=== PATIENT | female | born 2000 | race African-American/Black ===

== ENCOUNTER 2019-07-24 19:50 | Emergency (ER) | payer MEDICAID ==
[~2019-07-24] VITALS: Ht 162.6 cm; Wt 55.8 kg
[2019-07-24 20:04] VITALS: BP 108/74
--- NOTE | 2019-07-24 20:07 | NUR ---
ED Nurse Note: Patient walked in to ER c/o lower abdominal pain 5/. AAO x4, VSS at this time, skin is dry warm to touch. Patient stated that last period was in May.
[2019-07-24] MEDS ORDERED: Isovue-300 100ml vial INJ PRN (20:15)
--- NOTE | 2019-07-24 20:24 | Emergency Room Report ---
History of Present Illness General Chief Complaint: Abdominal Pain Source: Patient Present Illness HPI 18-year-old female with no significant past medical history here complaining of 2 weeks of right left lower quadrant abdominal pain radiating to suprapubic level. Also complains of urinary frequency however denies painful she says that she denies fever any chills, nausea vomiting, diarrhea. Patient reports that the pain is worse when she is laying down as well as walking. Denies pain after eating. Patient reports that her last menstrual period was in mid May and denies being however has been sexually active. Reports leg bloating. Denies recent travel. Denies dizziness and headache. Denies hematuria, sore throat number is 3-3 blood in her stool. 3 2 has not taken medication for symptom relief. Rating the pain 10 out of 10 without radiation at this time. Allergies: Coded Allergies: PENICILLINS (Verified Allergy, Unknown, 07/24/19) face swelling Patient History Past Medical History: see triage record Past Surgical History: unable to obtain Pertinent Family History: none Last Menstrual Period: May 24, 2019 Now: No : 0 Para: 0 Immunizations: UTD Reviewed Nursing Documentation: PMH: Agreed; PSxH: Agreed Nursing Documentation-PMH Past Medical History: No Stated History Review of Systems All Other Systems: negative except mentioned in HPI Physical Exam Vital Signs Date Time Temp Pulse Resp B/P (MAP) Pulse Ox O2 Delivery O2 Flow Rate FiO2 07/24/19 19:53 98.8 81 16 108/74 (85) 100 Room Air Sp02 EP Interpretation: reviewed, normal General Appearance: no apparent distress, alert, GCS 15, non-toxic Head: normocephalic, atraumatic Eyes: bilateral eye normal inspection, bilateral eye PERRL ENT: hearing grossly normal, normal pharynx, no angioedema, normal voice Neck: full range of motion, supple/symm/no masses Respiratory: chest non-tender, lungs clear, normal breath sounds, no rhonchi, speaking full sentences Cardiovascular #1: regular rate, rhythm, no edema, no murmur Gastrointestinal: normal bowel sounds, non tender, no peritonitis, no bruit, no guarding, no hernia, no pulsatile mass, no rebound, abnormal bowel sounds, distended, other - Negative McBurney's and Rovsing's Rectal: deferred Genitourinary: no CVA tenderness Musculoskeletal: normal inspection, back normal, digits/nails normal Neurologic: normal inspection, alert, oriented x3 Psychiatric: judgement/insight normal, memory normal, mood/affect normal, no suicidal/homicidal ideation Skin: no rash Lymphatic: no adenopathy Medical Decision Making PA Attestation All diagnoses and treatment plans were reviewed and discussed with my supervising physician Dr. Lundberg Diagnostic Impression: Primary Impression: Abdominal muscle strain ER Course 18-year-old female with no significant past medical history here complaining of 2 weeks of right left lower quadrant abdominal pain radiating to suprapubic level. Also complains of urinary frequency however denies painful she says that she denies fever any chills, nausea vomiting, diarrhea. Patient reports that the pain is worse when she is laying down as well as walking. Denies pain after eating. Patient reports that her last menstrual period was in mid May and denies being however has been sexually active. Reports leg bloating. Denies recent travel. Denies dizziness and headache. Denies hematuria, sore throat number is 3-3 blood in her stool. 3 2 has not taken medication for symptom relief. Rating the pain 10 out of 10 without radiation at this time. Ddx considered but are not limited to: appendicitis, cholecystis, gastritis, gastroenteritis, UTI, pyelonephritis, SBO, diverticulitis, abdominal muscle strain Vital signs: are WNL, pt. is afebrile H&PE are most consistent with: abdominal muscle strain ORDERS: abdominal CT, abdominal pain set,ibuprofen ED INTERVENTIONS: None required at this time. DISCHARGE: At this time pt. is stable for d/c to home. Will provide printed patient care instructions, and any necessary prescriptions. Care plan and follow up instructions have been discussed with the patient prior to discharge. Take medication as directed follow-up with primary care provider avoid strenuous activity worsening symptoms return to emergency room. P no sign of urinary tract infection or pyelonephritis noted. CT/MRI/US Diagnostic Results CT/MRI/US Diagnostic Results : Imaging Test Ordered: CT abd and pelvis w contrast Impression FINDINGS: Artifacts: Motion degrades study. Lung bases: Unremarkable. No mass. No consolidation. ABDOMEN: Liver: Unremarkable. No mass. Gallbladder and bile ducts: Unremarkable. No calcified stones. No ductal dilation. Pancreas: Unremarkable. No mass. No ductal dilation. Spleen: Unremarkable. No splenomegaly. Adrenals: Unremarkable. No mass. Kidneys and ureters: Unremarkable. No solid mass. No hydronephrosis. Stomach and bowel: Unremarkable. No obstruction. No mucosal thickening. PELVIS: Appendix: No findings to suggest acute appendicitis. Bladder: Unremarkable. No mass. Reproductive: Prominent right ovarian functional cyst. ABDOMEN and PELVIS: Intraperitoneal space: Unremarkable. No free air. No significant fluid collection. Bones/joints: No acute fracture. No dislocation. Soft tissues: Unremarkable. Vasculature: Unremarkable. No abdominal aortic aneurysm. Lymph nodes: Unremarkable. No enlarged lymph nodes. IMPRESSION: No acute findings. Last Vital Signs Date Time Temp Pulse Resp B/P (MAP) Pulse Ox O2 Delivery O2 Flow Rate FiO2 07/24/19 20:04 81 16 Room Air 07/24/19 20:04 98.8 108/74 100 Disposition: HOME, SELF-CARE Condition: Stable Patient Instructions: Abdominal Pain, Adult Additional Instructions: Take medication as directed follow-up with primary care provider avoid strenuous activity worsening symptoms return to emergency room. P no sign of urinary tract infection or pyelonephritis noted. Jaylyn Gallardo Jul 24, 2019 20:24
[2019-07-24 20:37] LABS: EOSINOPHILS % (AUTO) 1.1 % (0.0-3.0); HEMATOCRIT 43.9 % (37.0-47.0); HEMOGLOBIN 15.3 G/DL (12.0-16.0); LYMPHOCYTES % (AUTO) 38.7 % (20.0-45.0); MEAN CORPUSCULAR VOLUME 87 FL (80-99); MONOCYTES % (AUTO) 6.7 % (1.0-10.0); NEUTROPHILS % (AUTO) 52.5 % (45.0-75.0); PLATELET COUNT 246 K/UL (150-450); RED BLOOD COUNT 5.05 M/UL (4.20-5.40); RED CELL DISTRIBUTION WIDTH 11.4 % (11.6-14.8)
[2019-07-24 20:38] LABS: APPEARANCE,URINE CLEAR; BILIRUBIN, URINE NEGATIVE (NEGATIVE); GLUCOSE, URINE (UA) NEGATIVE (NEGATIVE); KETONES,URINE NEGATIVE (NEGATIVE); LEUKOCYTE ESTERASE ,URINE 1+ (NEGATIVE); NITRITE,URINE NEGATIVE (NEGATIVE); PH,URINE 8 (4.5-8.0); PROTEIN,URINE NEGATIVE (NEGATIVE); UROBILINOGEN,URINE 4 MG/DL (0.0-1.0)
[2019-07-24 20:39] LABS: ANION GAP 7 mmol/L (5-15); BLOOD UREA NITROGEN 17 mg/dL (7-18); CALCIUM 9.3 MG/DL (8.5-10.1); CARBON DIOXIDE 28 MMOL/L (21-32); CHLORIDE 106 MMOL/L (98-107); CREATININE 0.7 MG/DL (0.55-1.30); POTASSIUM 5.5 MMOL/L (3.5-5.1); SODIUM 141 MMOL/L (136-145)
[2019-07-24 20:42] LABS: COLOR,URINE YELLOW
[2019-07-24 20:44] LABS: ALANINE AMINOTRANSFERASE 50 U/L (12-78); ALBUMIN 4.3 G/DL (3.4-5.0); ALBUMIN/GLOBULIN RATIO 1.1 (1.0-2.7); ALKALINE PHOSPHATASE 85 U/L (46-116); ASPARTATE AMINO TRANSFERASE 37 U/L (15-37); BILIRUBIN,TOTAL 0.4 MG/DL (0.2-1.0)
[2019-07-24] MEDS ORDERED: IBUPROFEN600 MG ORAL (21:17)
--- NOTE | 2019-07-24 21:27 | NUR ---
ER DISCHARGE NOTE: Patient is cleared to be discharged per ERMD, pt is aox4, on room air, with stable vital signs. pt was given dc and prescription instructions, pt was able to verbalize understanding, pt id band and iv site removed without complications. pt is able to ambulate with steady gait. pt took all belongings.
== END 2019-07-24 21:26 | disposition home or self-care (01) ==
LOC: EMR 20:20
DX: S39.011A Strain of muscle, fascia and tendon of abdomen, initial encounter (principal); X58.XXXA Exposure to other specified factors, initial encounter; Y93.9 Activity, unspecified; Y92.9 Unspecified place or not applicable; Z88.0 Allergy status to penicillin
CPT/HCPCS: 36415; 74177; 80053; 81001; 81025; 85025; Q9967; Z7502; 99284

== ENCOUNTER 2019-10-03 22:20 | Emergency (ER) | payer MEDICAID ==
[~2019-10-03] VITALS: Ht 160 cm; Wt 56.2 kg
[~2019-10-03 22:20] MED LIST: IBUPROFEN600 MG ORAL
[2019-10-03 22:28] VITALS: BP 110/74
[2019-10-03] MEDS ORDERED: HYDROcodone/Acetamin 5/325 tab ORAL ONE (22:45)
[2019-10-03] MEDS ORDERED: IBUPROFEN600 MG ORAL (22:50)
[2019-10-03] MEDS ORDERED: HYDROCODON-ACE1 EA15 ORAL (22:50)
--- NOTE | 2019-10-03 22:50 | Emergency Room Report ---
History of Present Illness General Chief Complaint: Pain Source: Patient Present Illness HPI This is a 18-year-old female with no past medical history. She presents with chief complaint of left foot pain. No trauma. Onset yesterday. She points near the arch of her foot as area pain. No fever chills. Worse with palpation and walking. She is limping. Pain is 8 out of 10. Denies any fever chills but denies any redness but no drainage. Better with rest. Allergies: Coded Allergies: PENICILLINS (Verified Allergy, Unknown, 07/24/19) face swelling Patient History Past Medical History: see triage record, old chart reviewed Past Surgical History: none Pertinent Family History: none Social History: Denies: smoking Now: No Immunizations: other Reviewed Nursing Documentation: PMH: Agreed; PSxH: Agreed Nursing Documentation-PMH Past Medical History: No Stated History Review of Systems Eye: Denies: eye pain, blurred vision ENT: Denies: ear pain, nose congestion, throat swelling Respiratory: Denies: cough, shortness of breath Cardiovascular: Denies: chest pain, palpitations Gastrointestinal: Denies: abdominal pain, diarrhea, nausea, vomiting Musculoskeletal: Reports: joint pain; Denies: back pain Skin: Denies: rash Neurological: Denies: headache, numbness Endocrine: Denies: increased thirst, increased urine Hematologic/Lymphatic: Denies: easy bruising All Other Systems: negative except mentioned in HPI Physical Exam Vital Signs Date Time Temp Pulse Resp B/P (MAP) Pulse Ox O2 Delivery O2 Flow Rate FiO2 10/03/19 22:23 98.8 90 18 115/77 (90) 100 Room Air Vitals normal Sp02 EP Interpretation: reviewed, normal General Appearance: well appearing, no apparent distress, alert Head: normocephalic, atraumatic Eyes: bilateral eye PERRL, bilateral eye EOMI ENT: hearing grossly normal, normal pharynx Neck: full range of motion, supple, no meningismus Respiratory: chest non-tender, lungs clear, normal breath sounds Cardiovascular #1: regular rate, rhythm, no murmur Gastrointestinal: normal bowel sounds, non tender, no mass, no organomegaly, no bruit, non-distended Musculoskeletal: back normal, normal range of motion, gait/station normal, swelling - Left foot: She has tenderness just distal to the medial malleolus above the arch. There is some swelling. No redness or warmth. No tenderness over the plantar fascia. Pulses normal. Psychiatric: mood/affect normal Procedures Splinting Splinting : Consent: Verbal Location: left ankle Pre-Made Type: VANESSA wrap Pre-Proc Neuro Vasc Exam: normal Post-Proc Neuro Vasc Exam: normal Patient Tolerated: Well Complications: None Medical Decision Making Diagnostic Impression: Primary Impression: Left ankle sprain Qualified Codes: S93.422A - Sprain of deltoid ligament of left ankle, initial encounter ER Course Patient with left ankle pain. Most likely a sprain. I see no warmth or redness to indicate this is an infection. May be early in the process. It was worse in and more redness and warmth to that area, she will need antibiotics. We will treat for inflammation. No evidence of plantar fasciitis. No trauma. Other X-Ray Diagnostic Results Other X-Ray Diagnostic Results : X-Ray ordered: Left ankle x-rays # of Views/Limited Vs Complete: 3 View Indication: Pain EP Interpretation: Yes Interpretation: no dislocation, no soft tissue swelling, no fractures Impression: No acute disease Electronically Signed by: Ramesh Son MD Last Vital Signs Date Time Temp Pulse Resp B/P (MAP) Pulse Ox O2 Delivery O2 Flow Rate FiO2 10/03/19 22:28 98.3 84 17 110/74 99 Room Air Status: improved Disposition: HOME, SELF-CARE Condition: Stable Scripts Ibuprofen* (MOTRIN*) 600 Mg Tablet 600 MG ORAL THREE TIMES A DAY, #30 TAB 0 Refills Prov: Ramesh Son MD 10/03/19 Hydrocodone/Acetaminophen 5-325* (HYDROCODONE/ACETAMINOPHEN 5-325*) 1 Each Tablet 1 TAB ORAL Q6H PRN for For Pain, #10 TAB 0 Refills Prov: Ramesh Son MD 10/03/19 Additional Instructions: Elevate leg. Use crutches as needed. Follow-up with your doctor in 7 days. If having redness or fever to the foot, will need antibiotics. Return if symptoms worsen. Ramesh Son MD Oct 03, 2019 22:50
[2019-10-03 22:54] VITALS: BP 102/77
--- NOTE | 2019-10-03 23:38 | Diagnostic Imaging Report ---
EXAM: XR Left Ankle Complete, 3 or More Views CLINICAL HISTORY: TRAUMA TECHNIQUE: Frontal, lateral and oblique views of the left ankle. COMPARISON: No relevant prior studies available. FINDINGS: Bones/joints: Unremarkable. No acute fracture. No dislocation. Soft tissues: Moderate soft tissue swelling along and inferior to the medial malleolus. IMPRESSION: No acute or healing fracture or malalignment.
== END 2019-10-03 22:54 | disposition home or self-care (01) ==
LOC: EMR 22:42
DX: S93.422A Sprain of deltoid ligament of left ankle, initial encounter (principal); X58.XXXA Exposure to other specified factors, initial encounter; Y92.9 Unspecified place or not applicable; Z88.0 Allergy status to penicillin
CPT/HCPCS: 73610; Z7502; 99283

== ENCOUNTER 2019-10-27 00:15 | Emergency (ER) | payer MEDICAID ==
[~2019-10-27] VITALS: Ht 162.6 cm; Wt 65.8 kg
[~2019-10-27 00:15] MED LIST changes: +HYDROCODON-ACE1 EA15 ORAL
[2019-10-27] MEDS ORDERED: Ketorolac 30mg Inj IV ONE (00:45)
--- NOTE | 2019-10-27 00:47 | Emergency Room Report ---
History of Present Illness General Chief Complaint: Abdominal Pain Source: Patient Present Illness HPI This is a 18-year-old female with no past medical history patient presents with chief plan abdominal pain. Pain is on and off is been ongoing for the last 2 weeks. When it comes on is sharp and spastic in nature. Lasted for a few minutes. No nausea no vomiting. No fever chills. No diarrhea. Admitted better. Admitted worse. There is no aggravating factor. There is no relieving factors. Denies any urinary complaint. She said her menstruation is irregular. Said that she is not . Her pain is 8 out of 10. No radiation. Allergies: Coded Allergies: PENICILLINS (Verified Allergy, Unknown, 07/24/19) face swelling Patient History Past Medical History: see triage record, old chart reviewed Past Surgical History: none Pertinent Family History: none Social History: Denies: smoking Last Menstrual Period: aug 04 Now: No Immunizations: other Reviewed Nursing Documentation: PMH: Agreed; PSxH: Agreed Nursing Documentation-PMH Past Medical History: No Stated History Review of Systems Eye: Denies: eye pain, blurred vision ENT: Denies: ear pain, nose congestion, throat swelling Respiratory: Denies: cough, shortness of breath Cardiovascular: Denies: chest pain, palpitations Gastrointestinal: Reports: abdominal pain; Denies: diarrhea, nausea, vomiting Musculoskeletal: Denies: back pain, joint pain Skin: Denies: rash Neurological: Denies: headache, numbness Endocrine: Denies: increased thirst, increased urine Hematologic/Lymphatic: Denies: easy bruising All Other Systems: negative except mentioned in HPI Physical Exam Vital Signs Date Time Temp Pulse Resp B/P (MAP) Pulse Ox O2 Delivery O2 Flow Rate FiO2 10/27/19 00:20 98.1 86 16 108/71 (83) 99 Room Air Vitals normal Sp02 EP Interpretation: reviewed, normal General Appearance: well appearing, no apparent distress, alert Head: normocephalic, atraumatic Eyes: bilateral eye PERRL, bilateral eye EOMI ENT: hearing grossly normal, normal pharynx Neck: full range of motion, supple, no meningismus Respiratory: chest non-tender, lungs clear, normal breath sounds Cardiovascular #1: regular rate, rhythm, no murmur Gastrointestinal: non tender, no mass, no organomegaly, no bruit, non-distended , abnormal bowel sounds - Hyperactive Musculoskeletal: back normal, normal range of motion, gait/station normal Psychiatric: mood/affect normal Medical Decision Making Diagnostic Impression: Primary Impression: Abdominal pain during in first trimester Additional Impression: UTI (urinary tract infection) Qualified Codes: N30.00 - Acute cystitis without hematuria ER Course Patient with abdominal pain and early . Her level is very low. Nothing can be seen on the ultrasound. No obvious ectopic. Patient felt better now. Will discharge home with close follow-up. Explained to the patient that this may be early versus ectopic. Way too early to tell. She was here on October 10 and was negative. She looks comfortable. No guarding or rebound. CT/MRI/US Diagnostic Results CT/MRI/US Diagnostic Results : Imaging Test Ordered: Pelvic ultrasound Impression Read by industrial controls technician. Thickened endometrium but no IUP seen. No mass in the ovaries. Last Vital Signs Date Time Temp Pulse Resp B/P (MAP) Pulse Ox O2 Delivery O2 Flow Rate FiO2 10/27/19 00:20 98.1 86 16 108/71 (83) 99 Room Air Status: improved Disposition: HOME, SELF-CARE Condition: Stable Scripts Nitrofurantoin Monohyd/M-Cryst (Nitrofurantoin [place]-Mcr 100 mg) 100 Mg Capsule 100 MG ORAL Q12H, #14 CAP Prov: Ramesh Son MD 10/27/19 Referrals: [facility],REFERR[facility] (PCP) Patient Instructions: Abdominal Pain During Additional Instructions: May take Tylenol for pain. Follow-up with your [facility] within a week. Return if symptoms worsen. Ramesh Son MD Oct 27, 2019 00:47
[2019-10-27 01:03] LABS: EOSINOPHILS % (AUTO) 1.5 % (0.0-3.0); HEMATOCRIT 40.4 % (37.0-47.0); HEMOGLOBIN 14.2 G/DL (12.0-16.0); MEAN CORPUSCULAR VOLUME 85 FL (80-99); MONOCYTES % (AUTO) 7.3 % (1.0-10.0); NEUTROPHILS % (AUTO) 49.2 % (45.0-75.0); PLATELET COUNT 258 K/UL (150-450); RED BLOOD COUNT 4.78 M/UL (4.20-5.40); RED CELL DISTRIBUTION WIDTH 10.6 % (11.6-14.8); WHITE BLOOD COUNT 9.7 K/UL (4.8-10.8)
[2019-10-27 01:13] LABS: ANION GAP 7 mmol/L (5-15); BLOOD UREA NITROGEN 15 mg/dL (7-18); CALCIUM 8.6 MG/DL (8.5-10.1); CARBON DIOXIDE 26 MMOL/L (21-32); CHLORIDE 106 MMOL/L (98-107); CREATININE 0.7 MG/DL (0.55-1.30); POTASSIUM 3.6 MMOL/L (3.5-5.1); SODIUM 139 MMOL/L (136-145)
[2019-10-27 01:17] LABS: ALANINE AMINOTRANSFERASE 17 U/L (12-78); ALBUMIN 3.9 G/DL (3.4-5.0); ALBUMIN/GLOBULIN RATIO 1.1 (1.0-2.7); ALKALINE PHOSPHATASE 76 U/L (46-116); ASPARTATE AMINO TRANSFERASE 13 U/L (15-37); BILIRUBIN,TOTAL 0.3 MG/DL (0.2-1.0)
[2019-10-27] MEDS ORDERED: Morphine Sulfate 4mg/ml Inj (IV USE ONLY) IVP ONE (01:30)
[2019-10-27 01:38] LABS: BILIRUBIN, URINE NEGATIVE (NEGATIVE); COLOR,URINE PALE YELLOW; GLUCOSE, URINE (UA) NEGATIVE (NEGATIVE); KETONES,URINE 1+ (NEGATIVE); LEUKOCYTE ESTERASE ,URINE 1+ (NEGATIVE); NITRITE,URINE NEGATIVE (NEGATIVE); PH,URINE 6 (4.5-8.0); PROTEIN,URINE NEGATIVE (NEGATIVE); UROBILINOGEN,URINE NORMAL MG/DL (0.0-1.0)
[2019-10-27 01:47] LABS: APPEARANCE,URINE SLIGHTLY CLOUDY
[2019-10-27] MEDS ORDERED: MACROBID100 MG ORAL (02:44)
[2019-10-27 02:45] VITALS: BP 119/77
[2019-10-27] MEDS ORDERED: cefTRIAXone 1 GM in NS 55 ML IVPB ONE (02:45)
[2019-10-27 03:15] VITALS: BP 119/77
--- NOTE | 2019-10-27 16:55 | Diagnostic Imaging Report ---
Indication: Pelvic pain, positive test Technique: Transabdominal and transvaginal images of the pelvis. Doppler interrogation of the ovaries Comparison: none Findings: Uterus measures 8.4 cm length by 4.8 cm AP. The endometrium measures 14 mm thick. No intrauterine is demonstrated. There is a small cervical nabothian cyst noted. No myometrial abnormality. The right ovary measures 3.4 cm length. The left ovary measures 2.3 cm length. Both ovaries demonstrate normal flow on Doppler interrogation. Impression: No intrauterine visualized. Differential considerations include very early , spontaneous , ectopic Nabothian cyst
== END 2019-10-27 03:15 | disposition home or self-care (01) ==
LOC: EMR 00:35
DX: O26.90 Pregnancy related conditions, unspecified, unspecified trimester (principal); R10.9 Unspecified abdominal pain; N30.00 Acute cystitis without hematuria; Z3A.00 Weeks of gestation of pregnancy not specified; Z88.0 Allergy status to penicillin
CPT/HCPCS: 36415; 76801; 80053; 81003; 81025; 83690; 84702; 84703; 85025; 96361; 96365; 96375; J0696; J1885; J2270; J7030; Z7502; 99284

== ENCOUNTER 2019-12-15 18:32 | Emergency (ER) | payer MEDICAID ==
[~2019-12-15] VITALS: Ht 162.6 cm; Wt 56.7 kg
[~2019-12-15 18:32] MED LIST changes: +MACROBID100 MG ORAL; +RIBOFLAVIN100 MG PO
[2019-12-15 19:10] VITALS: BP 122/73
--- NOTE | 2019-12-15 19:10 | NUR ---
ED Nurse Note: Report received from STAN Yeh. Pt walked into ED from home for c/o abdominal pain/nausea for the past couple of days. Pt is 13 weeks . Pt denies vomiting. Pt is aaox4, no cardiac or respiratory distress noted.
[2019-12-15 19:44] LABS: ANION GAP 10 mmol/L (5-15); BLOOD UREA NITROGEN 16 mg/dL (7-18); CALCIUM 9.5 MG/DL (8.5-10.1); CARBON DIOXIDE 26 MMOL/L (21-32); CHLORIDE 103 MMOL/L (98-107); CREATININE 0.7 MG/DL (0.55-1.30); POTASSIUM 3.8 MMOL/L (3.5-5.1); SODIUM 139 MMOL/L (136-145)
[2019-12-15 19:48] LABS: ALANINE AMINOTRANSFERASE 16 U/L (12-78); ALBUMIN 3.7 G/DL (3.4-5.0); ALBUMIN/GLOBULIN RATIO 0.9 (1.0-2.7); ALKALINE PHOSPHATASE 54 U/L (46-116); ASPARTATE AMINO TRANSFERASE 14 U/L (15-37); BILIRUBIN,TOTAL 0.1 MG/DL (0.2-1.0)
[2019-12-15 19:52] LABS: BASOPHILS % (AUTO) 0.8 % (0.0-2.0); EOSINOPHILS % (AUTO) 1.7 % (0.0-3.0); HEMATOCRIT 43.3 % (37.0-47.0); MEAN CORPUSCULAR VOLUME 92 FL (80-99); MONOCYTES % (AUTO) 6.3 % (1.0-10.0); NEUTROPHILS % (AUTO) 66.3 % (45.0-75.0); PLATELET COUNT 246 K/UL (150-450); RED BLOOD COUNT 4.73 M/UL (4.20-5.40); RED CELL DISTRIBUTION WIDTH 11.9 % (11.6-14.8); WHITE BLOOD COUNT 13.4 K/UL (4.8-10.8)
[2019-12-15 19:56] LABS: APPEARANCE,URINE CLOUDY; BILIRUBIN, URINE NEGATIVE (NEGATIVE); COLOR,URINE PALE YELLOW; GLUCOSE, URINE (UA) NEGATIVE (NEGATIVE); KETONES,URINE NEGATIVE (NEGATIVE); LEUKOCYTE ESTERASE ,URINE NEGATIVE (NEGATIVE); NITRITE,URINE NEGATIVE (NEGATIVE); PH,URINE 7 (4.5-8.0); PROTEIN,URINE NEGATIVE (NEGATIVE); UROBILINOGEN,URINE NORMAL MG/DL (0.0-1.0)
--- NOTE | 2019-12-15 20:00 | Diagnostic Imaging Report ---
Indication: . Pelvic pain Technique: Grayscale and duplex Doppler imaging of the pelvis performed utilizing a transabdominal scan and endovaginal scan. Comparison: None Findings: Single viable intrauterine 11 weeks 5 days gestational age demonstrated. This is based on crown-rump length. The cervix is closed and measures 3.8 cm in length. heart motion demonstrated with active movement. Cervical nabothian cysts are noted. Fetus is currently breech. anatomy is not assessed. Amniotic fluid volume appears appropriate. Placenta is posterior. There is no evidence of placenta previa. However the placenta is somewhat low-lying which may resolve with further growth and development of the . Suggest follow-up ultrasound closer to term. IMPRESSION: Single viable intrauterine 11 weeks 5 days. Amniotic fluid volume appears appropriate. Cervix is closed. Marginal placenta previa. This may normalize later in . Recommend follow-up ultrasound closer to term.
--- NOTE | 2019-12-15 20:15 | Emergency Room Report ---
History of Present Illness General Chief Complaint: Abdominal Pain Source: Patient Present Illness HPI 19-year-old female who is G1, P0 and reports being 13 weeks here complaining of diffuse abdominal pain x1 day. Denies any vaginal bleeding or spotting. Denies vaginal pruritus. Denies urinary frequency and urgency. Reports that symptoms started as she was sitting down. Denies any recent strenuous physical activity. Last OB visit was 2 weeks ago and regular. Patient reports that she is noncompliant with taking her vitamins if they make her nauseated. Denies any alcohol intake, tobacco smoke, marijuana use. Denies fever and chills, chest pain, shortness of breath, palpitation, headache and dizziness and syncope. Sitting comfortably with stable vital signs. Rates the pain 5 out of 10, describing as cramping without radiation. Denies recent travel, diarrhea and constipation. Allergies: Coded Allergies: PENICILLINS (Verified Allergy, Unknown, 07/24/19) face swelling Patient History Past Medical History: see triage record Past Surgical History: none Pertinent Family History: none Last Menstrual Period: 07/27/20 Now: Yes - 13 WEEKS Immunizations: UTD Reviewed Nursing Documentation: PMH: Agreed; PSxH: Agreed Nursing Documentation-PMH Past Medical History: No Stated History Review of Systems All Other Systems: negative except mentioned in HPI Physical Exam Vital Signs Date Time Temp Pulse Resp B/P (MAP) Pulse Ox O2 Delivery O2 Flow Rate FiO2 12/15/19 18:35 98.4 98 20 122/73 (89) 99 Room Air Sp02 EP Interpretation: reviewed, normal General Appearance: no apparent distress, alert, GCS 15, non-toxic Head: normocephalic, atraumatic Eyes: bilateral eye normal inspection, bilateral eye PERRL ENT: hearing grossly normal, normal pharynx, no angioedema, normal voice Neck: full range of motion, supple/symm/no masses Respiratory: normal inspection, chest non-tender, lungs clear, normal breath sounds, no rhonchi, no respiratory distress, no retraction Cardiovascular #1: regular rate, rhythm, no edema, no murmur Cardiovascular #2: 2+ carotid (R), 2+ carotid (L), 2+ radial (R), 2+ radial (L) Gastrointestinal: normal bowel sounds, no mass, no organomegaly, no peritonitis , no bruit, non-distended Rectal: deferred Genitourinary: normal inspection, no CVA tenderness Musculoskeletal: back normal, digits/nails normal, no calf tenderness, pelvis stable Neurologic: alert, motor strength/tone normal, oriented x3, sensory intact, responsive, speech normal Psychiatric: judgement/insight normal, memory normal, mood/affect normal, no suicidal/homicidal ideation Skin: no rash Lymphatic: no adenopathy Medical Decision Making PA Attestation All my diagnosis and treatment plans were reviewed ad discussed with my supervising physician Dr. Alcocer Diagnostic Impression: Primary Impression: Abdominal pain during intrauterine Additional Impression: Nabothian cyst ER Course 19-year-old female who is G1, P0 and reports being 13 weeks here complaining of diffuse abdominal pain x1 day. Denies any vaginal bleeding or spotting. Denies vaginal pruritus. Denies urinary frequency and urgency. Reports that symptoms started as she was sitting down. Denies any recent strenuous physical activity. Last OB visit was 2 weeks ago and regular. Patient reports that she is noncompliant with taking her vitamins if they make her nauseated. Denies any alcohol intake, tobacco smoke, marijuana use. Denies fever and chills, chest pain, shortness of breath, palpitation, headache and dizziness and syncope. Sitting comfortably with stable vital signs. Rates the pain 5 out of 10, describing as cramping without radiation. Denies recent travel, diarrhea and constipation. Ddx considered but are not limited to: Ectopic versus threatened versus spontaneous versus abdominal pain during , subchorionic hemorrhage Vital signs: are WNL, pt. is afebrile H&PE are most consistent with: Abdominal pain during , incidental finding of an nabothian cyst ORDERS: CBC, CMP, UA, beta-hCG, type and screen, urine tox screen, OB ultrasound , dicegis, tylenol ED INTERVENTIONS: NS bolus, Zofran, Pepcid DISCHARGE: At this time pt. is stable for d/c to home. Will provide printed patient care instructions, and any necessary prescriptions. Care plan and follow up instructions have been discussed with the patient prior to discharge. Patient take medication as directed, follow-up with [facility] in 24 to 48 hours for repeat of ultrasound and beta-hCG, worsening symptoms, increased abdominal pain, vaginal bleeding or spotting return to the emergency room. CT/MRI/US Diagnostic Results CT/MRI/US Diagnostic Results : Imaging Test Ordered: OB US Impression US OB [facility]st [facility]: Single live IUP with an estimated gestational age 11 weeks and 5 days. Normal heart tones. Cervix long and closed measuring to 3.8 cm. Nabothian cysts within the cervix. Trace free fluid the pelvis. Probable dominant follicle adjacent to the right ovary. Otherwise the ovaries are unremarkable. No torsion. Last Vital Signs Date Time Temp Pulse Resp B/P (MAP) Pulse Ox O2 Delivery O2 Flow Rate FiO2 12/15/19 18:35 98.4 98 20 122/73 (89) 99 Room Air Status: improved Disposition: HOME, SELF-CARE Condition: Stable Scripts Acetaminophen* (TYLENOL EXTRA STRENGTH*) 500 Mg Tablet 500 MG ORAL Q8H PRN for Prn Headache/Temp > 101, #30 TAB 0 Refills Prov: Jaylyn Gallardo 12/15/19 Doxylamine/Pyridoxine Hcl (ALESSANDRO MAST 10-10 MG TABLET) 1 Each Tablet.dr 1 EACH PO TID, #21 TAB Prov: Jaylyn Gallardo 12/15/19 Referrals: [facility],REFERRING (PCP) Patient Instructions: Abdominal Pain During Additional Instructions: Follow-up with your [facility] in 24 to 48 hours take medication as directed you need to take your vitamins on daily basis. If worsening symptoms return to the emergency room. Jaylyn Gallardo Dec 15, 2019 20:15
[2019-12-15] MEDS ORDERED: DICLEGIS DR 101 EACH PO (20:16)
[2019-12-15] MEDS ORDERED: TYLENOL EXTRA500 MG ORAL (20:16)
[2019-12-15 20:40] VITALS: BP 122/73
== END 2019-12-15 20:40 | disposition home or self-care (01) ==
LOC: EMR 19:16
DX: O26.891 Other specified pregnancy related conditions, first trimester (principal); N88.8 Other specified noninflammatory disorders of cervix uteri; R10.9 Unspecified abdominal pain; Z88.0 Allergy status to penicillin; Z3A.11 11 weeks gestation of pregnancy
CPT/HCPCS: 36415; 76801; 76830; 80053; 80307; 81003; 84702; 85025; 86850; 86900; 86901; 96361; 96374; 96375; J2405; J7030; S0028; Z7502; 99284

== ENCOUNTER 2020-01-15 09:38 | Emergency (ER) | payer MEDICAID ==
[~2020-01-15] VITALS: Ht 162.6 cm; Wt 60.8 kg
[~2020-01-15 09:38] MED LIST changes: +DICLEGIS DR 101 EACH PO; +TYLENOL EXTRA500 MG ORAL
--- NOTE | 2020-01-15 09:55 | NUR ---
ED Nurse Note: A/OX4. PT STATES THAT SHE'S NOT FEELING MOVEMENT FOR A DAY. BUT PT DENIES ANY VAGINAL BLEEDING/DICHARGE, AND ANY ABDOMINAL PAIN. BREATHING NORMAL/EVEN/UNLABORED. SKIN WARM/DRY/INTACT. NAD NOTED. URINE SENT DOWN TO LAB. [employer] WAS CONTACTED FOR US ORDER.
--- NOTE | 2020-01-15 10:00 | Emergency Room Report ---
History of Present Illness General Chief Complaint: Complications Source: Patient Present Illness HPI 19-year-old female G1, P0 approximately 17 weeks presented for concern for decreased movement. Patient states she has noted decreased movement for the past 24 hours. She states she had a left lower quadrant abdominal pain yesterday but none today. No fevers, nausea, vomiting or urinary complaints. She denies any vaginal bleeding. She denies any medical history. She is currently followed at an OB clinic. She has had normal ultrasounds throughout this . Allergies: Coded Allergies: PENICILLINS (Verified Allergy, Unknown, 07/24/19) face swelling Patient History Past Medical History: see triage record Last Menstrual Period: 07/27/19 Now: Yes : 1 Para: 0 Reviewed Nursing Documentation: PMH: Agreed; PSxH: Agreed Nursing Documentation-PMH Past Medical History: No Stated History Review of Systems All Other Systems: negative except mentioned in HPI Physical Exam Vital Signs Date Time Temp Pulse Resp B/P (MAP) Pulse Ox O2 Delivery O2 Flow Rate FiO2 01/15/20 09:49 98.2 95 15 115/66 (82) 96 Room Air Sp02 EP Interpretation: reviewed, normal General Appearance: well appearing, no apparent distress Head: normocephalic, atraumatic Eyes: bilateral eye PERRL, bilateral eye EOMI ENT: hearing grossly normal, moist mucus membranes Neck: full range of motion, supple Respiratory: lungs clear, normal breath sounds, no rhonchi, no respiratory distress, no retraction, no wheezing Cardiovascular #1: normal peripheral pulses, regular rate, rhythm, no murmur Gastrointestinal: non tender, soft, non-distended, no guarding Neurologic: alert, oriented x3, no focal defects Skin: normal color, warm/dry Medical Decision Making ER Course Differential diagnosis included but not limited to abdominal pain in early , normal second trimester , round ligament pain, did consider UTI. Nontoxic on exam. No vaginal bleeding. Ultrasound demonstrated viable intrauterine . No free fluid noted. Urinalysis with 1+ leukocyte esterase. Will treat for UTI. Patient to follow-up at her OB clinic. Given return precautions. Stable for discharge. Labs Test 01/15/20 09:55 Urine Color Pale yellow Urine Appearance Clear Urine pH 6 (4.5-8.0) Urine Specific [place] 1.020 (1.005-1.035) Urine Protein Negative (NEGATIVE) Urine Glucose (UA) Negative (NEGATIVE) Urine Ketones 1+ (NEGATIVE) Urine Blood Negative (NEGATIVE) Urine Nitrite Negative (NEGATIVE) Urine Bilirubin Negative (NEGATIVE) Urine Urobilinogen Normal MG/DL (0.0-1.0) Urine Leukocyte Esterase 1+ (NEGATIVE) Urine RBC 0-2 /HPF (0 - 2) Urine WBC 2-4 /HPF (0 - 2) Urine Squamous Epithelial Cells Few /LPF (NONE/OCC) Urine Bacteria Few /HPF (NONE) Urine Mucus Many /LPF (NONE/OCC) Last Vital Signs Date Time Temp Pulse Resp B/P (MAP) Pulse Ox O2 Delivery O2 Flow Rate FiO2 01/15/20 09:49 98.2 95 15 115/66 (82) 96 Room Air Status: improved Disposition: HOME, SELF-CARE Condition: Stable Scripts Nitrofurantoin Monohyd/M-Cryst* (MACROBID 100 MG*) 100 Mg Capsule 100 MG ORAL EVERY 12 HOURS, #10 CAP Prov: Fredy Kramer M.D. 01/15/20 Referrals: [facility],REFERRING (PCP) Fredy Kramer M.D. Jan 15, 2020 10:00
[2020-01-15 10:10] LABS: APPEARANCE,URINE CLEAR; BILIRUBIN, URINE NEGATIVE (NEGATIVE); COLOR,URINE PALE YELLOW; GLUCOSE, URINE (UA) NEGATIVE (NEGATIVE); KETONES,URINE 1+ (NEGATIVE); LEUKOCYTE ESTERASE ,URINE 1+ (NEGATIVE); NITRITE,URINE NEGATIVE (NEGATIVE); PH,URINE 6 (4.5-8.0); PROTEIN,URINE NEGATIVE (NEGATIVE); UROBILINOGEN,URINE NORMAL MG/DL (0.0-1.0)
[2020-01-15] MEDS ORDERED: NITROFURANTOIN100 M2 ORAL (11:18)
[2020-01-15 11:23] VITALS: BP 116/75
--- NOTE | 2020-01-15 11:24 | NUR ---
ER DISCHARGE NOTE: Patient is cleared to be discharged per ERMD, pt is aox4, on room air, with stable vital signs. pt was given dc and prescription instructions, pt was able to verbalize understanding, pt id band removed without complications. pt is able to ambulate with steady gait. pt took all belongings.
--- NOTE | 2020-01-15 14:21 | Diagnostic Imaging Report ---
Indication: Decreased motion for one day, 17 week patient Technique: Transabdominal images of the uterus and fetus Comparison: December 15, 2019 Findings: There is a live intrauterine . This demonstrates breech presentation. There is positive heart activity, heart rate is 148 bpm. motion is noted throughout the exam. There is posterior/right fundal placenta which clears the internal cervical os. The cervix is closed, endocervical canal measuring approximately 3.8 cm in length. Amniotic fluid volume is normal, amniotic fluid index 11.2 cm. Estimated gestational age by average ultrasound measurements is 16 weeks 3 days. Estimated date of delivery is 06/28/2020. Estimated gestational age by dates is 24 weeks 4 days. Findings represent appropriate interim growth since the previous exam Only limited assessment of anatomy, due to emergent nature of exam. Impression: 16 week 3 day, by average of all 7 measures single live intrauterine . No unusual features
== END 2020-01-15 11:24 | disposition home or self-care (01) ==
LOC: EMR 09:52
DX: O36.8120 Decreased fetal movements, second trimester, not applicable or unspecified (principal); Z3A.17 17 weeks gestation of pregnancy; Z88.0 Allergy status to penicillin
CPT/HCPCS: 76805; 81003; Z7502; 99284

== ENCOUNTER 2020-02-15 15:23 | Emergency (ER) | payer MEDICAID ==
[~2020-02-15] VITALS: Ht 162.6 cm; Wt 61.7 kg
[~2020-02-15 15:23] MED LIST changes: +NITROFURANTOIN100 M2 ORAL
--- NOTE | 2020-02-15 16:02 | NUR ---
ED Nurse Note: pt with labs drawn and sent. tolerates well. pt with bedside ultrasound being done. denies cramping or vaginal discharge.
--- NOTE | 2020-02-15 16:20 | Emergency Room Report ---
History of Present Illness General Chief Complaint: Complications Source: Patient Present Illness HPI 19-year-old female with no segment past medical history who is 20 weeks here complaining of right-sided abdominal pain that started last night radiating to right flank. Denies any urinary frequency and urgency. Denies vaginal discharge, spotting or bleeding. Patient reports that she has not yet been able to establish an [employer]PERATOR and last ultrasound was done by [facility] weeks ago. Patient has been here multiple times since the beginning of her . Patient is aware that she needs to establish an P[employer] MACHINE OPERATOR for delivery. Denies any lifting heavy object, denies denies any recent sexual encounter. Denies fever and chills, nausea vomiting, chest pain, shortness of breath, cough and congestion. Compliant with taking her vitamins, denies any tobacco smoke, drug use, alcohol intake. Allergies: Coded Allergies: PENICILLINS (Verified Allergy, Unknown, 07/24/19) face swelling COVID-19 Screening Contact w/high risk pt: No Recent Travel to affected area: No Experienced COVID-19 symptoms?: No Patient History Past Medical History: see triage record Past Surgical History: none Pertinent Family History: none Last Menstrual Period: 07/27/20 Now: Yes : 1 Para: 0 Immunizations: UTD Reviewed Nursing Documentation: PMH: Agreed; PSxH: Agreed Nursing Documentation-PMH Past Medical History: No Stated History Review of Systems All Other Systems: negative except mentioned in HPI Physical Exam Vital Signs Date Time Temp Pulse Resp B/P (MAP) Pulse Ox O2 Delivery O2 Flow Rate FiO2 02/15/20 15:35 98.2 86 16 107/57 (74) 99 Room Air Sp02 EP Interpretation: reviewed, normal General Appearance: no apparent distress, alert, GCS 15, non-toxic Head: normocephalic, atraumatic Eyes: bilateral eye normal inspection, bilateral eye PERRL ENT: hearing grossly normal, normal pharynx, no angioedema, normal voice Neck: full range of motion, supple/symm/no masses Respiratory: chest non-tender, lungs clear, normal breath sounds, no rhonchi, no wheezing, speaking full sentences Cardiovascular #1: regular rate, rhythm, no edema, no murmur Gastrointestinal: normal bowel sounds, non tender, soft, no guarding, no rebound, other - Gravid Rectal: deferred Genitourinary: no CVA tenderness Musculoskeletal: back normal Neurologic: alert, motor strength/tone normal, oriented x3, sensory intact, responsive, speech normal Psychiatric: judgement/insight normal, memory normal, mood/affect normal, no suicidal/homicidal ideation Skin: no rash Lymphatic: no adenopathy Medical Decision Making PA Attestation All diagnoses and treatment plans were reviewed and discussed with my supervising physician Dr. Lundberg Diagnostic Impression: Primary Impression: Abdominal pain in Additional Impressions: UTI (urinary tract infection) during Nabothian cyst ER Course 19-year-old female with no segment past medical history who is 20 weeks here complaining of right-sided abdominal pain that started last night radiating to right flank. Denies any urinary frequency and urgency. Denies vaginal discharge, spotting or bleeding. Patient reports that she has not yet been able to establish an [employer] MACHINE OPERATOR and last ultrasound was done by [facility] 2 weeks ago. Patient has been here multiple times since the beginning of her . Patient is aware that she needs to establish an PAPER [employer] MACHINE OPERATOR for delivery. Denies any lifting heavy object, denies denies any recent sexual encounter. Denies fever and chills, nausea vomiting, chest pain, shortness of breath, cough and congestion. Compliant with taking her vitamins, denies any tobacco smoke, drug use, alcohol intake. Ddx considered but are not limited to: UTI during , spontaneous , threatened , uncomplicated abdominal pain during , Osei Weller contractions Vital signs: are WNL, pt. is afebrile H&PE are most consistent with: Abdominal pain during , UTI during ORDERS: UA, urine cx, beta-hCG, CBC, CMP, type and screen, OB ultrasound, tylenol, keflex ED INTERVENTIONS: None required at this time. DISCHARGE: At this time pt. is stable for d/c to home. Will provide printed patient care instructions, and any necessary prescriptions. Care plan and follow up instructions have been discussed with the patient prior to discharge. Follow-up with your [employer] M[employer]INE OPERATOR, worsening symptoms return to the emergency room CT/MRI/US Diagnostic Results CT/MRI/US Diagnostic Results : Imaging Test Ordered: ob US Impression WNL , HR 157, 20wks Last Vital Signs Date Time Temp Pulse Resp B/P (MAP) Pulse Ox O2 Delivery O2 Flow Rate FiO2 4/6/20 15:35 98.2 86 16 107/57 (74) 99 Room Air Disposition: HOME, SELF-CARE Condition: Stable Patient Instructions: Abdominal Pain During , [id number], Urinary Tract Infection, [id number] Additional Instructions: Patient follow-up with [employer]PERATOR for further testing and evaluation if worsening symptoms return to the emergency room Jaylyn Gallardo Feb 15, 2020 16:20
[2020-02-15 16:32] LABS: APPEARANCE,URINE CLEAR; BASOPHILS % (AUTO) 0.5 % (0.0-2.0); BILIRUBIN, URINE NEGATIVE (NEGATIVE); COLOR,URINE PALE YELLOW; EOSINOPHILS % (AUTO) 1.8 % (0.0-3.0); GLUCOSE, URINE (UA) NEGATIVE (NEGATIVE); HEMATOCRIT 34.5 % (37.0-47.0); KETONES,URINE NEGATIVE (NEGATIVE); LEUKOCYTE ESTERASE ,URINE 1+ (NEGATIVE); LYMPHOCYTES % (AUTO) 22.9 % (20.0-45.0); MEAN CORPUSCULAR VOLUME 87 FL (80-99); MONOCYTES % (AUTO) 7.8 % (1.0-10.0); NEUTROPHILS % (AUTO) 66.9 % (45.0-75.0); NITRITE,URINE NEGATIVE (NEGATIVE); PH,URINE 8 (4.5-8.0); PLATELET COUNT 234 K/UL (150-450); PROTEIN,URINE NEGATIVE (NEGATIVE); RED BLOOD COUNT 3.95 M/UL (4.20-5.40); RED CELL DISTRIBUTION WIDTH 11.1 % (11.6-14.8); UROBILINOGEN,URINE NORMAL MG/DL (0.0-1.0); WHITE BLOOD COUNT 13.7 K/UL (4.8-10.8)
--- NOTE | 2020-02-15 16:37 | NUR ---
ED Nurse Note: bedside us completed. pt tolerates well. awaiting labs results for further dispo
[2020-02-15 16:40] LABS: ANION GAP 8 mmol/L (5-15); BLOOD UREA NITROGEN 8 mg/dL (7-18); CALCIUM 8.4 MG/DL (8.5-10.1); CARBON DIOXIDE 25 MMOL/L (21-32); CHLORIDE 103 MMOL/L (98-107); CREATININE 0.5 MG/DL (0.55-1.30); POTASSIUM 3.6 MMOL/L (3.5-5.1); SODIUM 135 MMOL/L (136-145)
[2020-02-15 16:47] LABS: ALANINE AMINOTRANSFERASE 22 U/L (12-78); ALBUMIN/GLOBULIN RATIO 0.8 (1.0-2.7); ALKALINE PHOSPHATASE 60 U/L (46-116); BILIRUBIN,TOTAL 0.1 MG/DL (0.2-1.0)
[2020-02-15] MEDS ORDERED: CEPHALEXIN500 MG ORAL (17:03)
[2020-02-15] MEDS ORDERED: TYLENOL EXTRA500 MG ORAL (17:03)
[2020-02-15 17:06] LABS: ASPARTATE AMINO TRANSFERASE 21 U/L (15-37)
--- NOTE | 2020-02-15 17:17 | NUR ---
ED Nurse Note: Pt cleared by health care Provider for discharge. DC instructions/prescription was given and explained to pt and verbalized understanding of teachings. All medical devices such as ID band removed. Pt is AAO x4, ambulatory and left with all personal belongings. pt aware to follow up with an OB MD. amb steady gait out of ed
[2020-02-15 17:20] VITALS: BP 107/57
--- NOTE | 2020-02-15 17:25 | Diagnostic Imaging Report ---
Indication: Pelvic pain, patient Technique: Transabdominal and transvaginal images of the uterus and fetus Comparison: 01/15/2020 Findings: There is a single live intrauterine . This demonstrates positive heart activity, heart rate 163 bpm. Position is transverse. Placenta is lateral, clears the internal cervical os. Cervix is closed, endocervical canal measuring 3.9 cm in length. Incidental note is made of multiple nabothian cysts within the cervix. Amniotic fluid volume is normal, amniotic fluid index 12.4 cm. Estimated gestational age by average of ultrasound measurements is 20 weeks 6 days. Estimated date of delivery is 06/28/2020. This represents appropriate interval growth from the previous exam. Only limited assessment of the anatomy, due to emergent nature of exam. Normal three-vessel cord, spine, urinary bladder, cord insertion and four-chamber heart are demonstrated. Impression: 20 weeks 6 day, by average of ultrasound measurements, single live intrauterine . No unusual features
== END 2020-02-15 17:23 | disposition home or self-care (01) ==
LOC: EMR 16:04
DX: O26.92 Pregnancy related conditions, unspecified, second trimester (principal); O23.42 Unspecified infection of urinary tract in pregnancy, second trimester; Z3A.20 20 weeks gestation of pregnancy; N88.8 Other specified noninflammatory disorders of cervix uteri; Z88.0 Allergy status to penicillin
CPT/HCPCS: 36415; 76805; 76817; 80053; 81003; 84702; 85025; 86850; 86900; 86901; 87086; Z7502; 99284

== ENCOUNTER 2020-08-03 20:46 | Emergency (ER) | payer MEDICAID ==
[~2020-08-03] VITALS: Ht 162.6 cm; Wt 72.6 kg
[~2020-08-03 20:46] MED LIST changes: +CEPHALEXIN500 MG ORAL
--- NOTE | 2020-08-03 21:09 | NUR ---
ED Nurse Note: pt presents to ED c/o sore throat, SOB with exertion and cough since last PM. pt reports similar symptoms 2 months ago when she was and was diagnosed with PNA, COVID tests performed at the time were negative. pt rates the pain 7/10 that is exacerbated by swallowing
[2020-08-03 21:12] VITALS: BP 136/76
--- NOTE | 2020-08-03 21:17 | NUR ---
ED Nurse Note: xray at pt bedside
[2020-08-03 21:45] VITALS: BP 136/76
--- NOTE | 2020-08-03 21:45 | NUR ---
ER DISCHARGE NOTE: Patient is cleared to be discharged per ERMD, pt is aox4, on room air, with stable vital signs. pt was given dc and f/u as well as self-isolation instructions, pt was able to verbalize understanding, pt id band removed without complications. pt is able to ambulate with steady gait. pt took all belongings.
--- NOTE | 2020-08-03 21:46 | Emergency Room Report ---
History of Present Illness General Chief Complaint: Upper Respiratory Illness Source: Patient Present Illness HPI Disclaimer: Please note that this report is being documented using DRAGON technology. This can lead to erroneous entry secondary to incorrect interpretation by the dictating instrument. HPI: 19-year-old otherwise healthy female presents for evaluation of cough and sore throat. Symptoms present several days. She is concerned she may have pneumonia as she was treated for pneumonia during a 2 months ago. Reports 3 to 4 days of nasal congestion, postnasal drip, sore throat and nonproductive cough. No objective fevers recorded but the patient states she has felt intermittently hot. No known sick contacts. No recent travel. Has not been tested for COVID-19 to receive this years flu shot. Denies nausea, vomiting, chest pain, shortness of breath, diarrhea or other symptoms at this time. PMH: Reviewed PSH: Reviewed Allergies: Penicillin Social Hx: Reviewed Allergies: Coded Allergies: PENICILLINS (Verified Allergy, Unknown, 07/24/19) face swelling COVID-19 Screening Contact w/high risk pt: No Recent Travel to affected area: No Experienced COVID-19 symptoms?: Yes COVID-19 Testing performed COAL GETTER: No Patient History Last Menstrual Period: unk Review of Systems All Other Systems: negative except mentioned in HPI Physical Exam Vital Signs Date Time Temp Pulse Resp B/P (MAP) Pulse Ox O2 Delivery O2 Flow Rate FiO2 08/03/20 20:58 99.1 86 18 136/76 (96) 95 Room Air General: Awake and alert, no acute distress HEENT: NC/AT. EOMI. PERRLA. Uvula midline. Throat is slightly erythematous but not edematous, no exudate, no tonsillar enlargement. Resp: Normal work of breathing. No cough. No crackles. No wheezing. Skin: Intact. No abrasions, laceration or rash over the exposed skin MSK: Normal tone and bulk. Moving all extremities. No obvious deformity. Neuro: Awake and alert. Mentating appropriately Medical Decision Making Diagnostic Impression: Primary Impression: Upper respiratory infection ER Course 19-year-old female presents for evaluation of cough, sore throat, nasal congestion. Differential includes was not limited to viral syndrome, upper respiratory infection, bronchitis, pneumonia. X-ray does not show an obvious infiltrate. Likely a viral syndrome, possibly COVID-19. Patient instructed to self quarantine and obtain COVID-19 testing on an outpatient basis. No indication for antibiotics at this time. She is afebrile stable vital signs. Follow-up on an outpatient basis with PMD and instructed to return with new or worsening symptoms. She understands and agrees with this treatment plan. Chest X-Ray Diagnostic Results Chest X-Ray Diagnostic Results : Chest X-Ray Ordered: Yes # of Views/Limited/Complete: 1 View Indication: Other - Cough EP Interpretation: Yes Interpretation: no consolidation, no effusion, no pneumothorax, no acute cardiopulmonary disease Impression: No acute disease Electronically Signed by: Electronically signed by Dr. El Lundberg Last Vital Signs Date Time Temp Pulse Resp B/P (MAP) Pulse Ox O2 Delivery O2 Flow Rate FiO2 08/03/20 21:12 86 18 Room Air 08/03/20 21:12 99.1 136/76 95 Disposition: HOME, SELF-CARE Condition: Stable Referrals: [facility],REFERRING (PCP) Patient Instructions: Upper Respiratory Infection, Adult Additional Instructions: Call your primary physician as soon as possible to discuss emergency department visit. You may require reevaluation or further testing per your doctor's recommendations. Limit your contact with others as much as possible over the n ext 14 days. Stay minimum of 6 feet away from others, do not attend large gatherings and clean and disinfect all heavily used surfaces. Follow CDC guidelines for isolation and infection prevention. If you experience any new or worsening symptoms discussed with your doctor or return to the emergency department for reevaluation. El Lundberg MD Aug 03, 2020 21:46
--- NOTE | 2020-08-04 15:37 | Diagnostic Imaging Report ---
Procedure: XRAY Chest 1v Reason for study: Reason For Exam: SOB Comparison films: None. FINDINGS: A single one view chest is obtained. Vascularity is normal. The lung gambino are clear bilaterally. Cardiac and mediastinal silhouette are within normal limits. CP angles are sharp. The bony thorax appear unremarkable. IMPRESSION: NO ACUTE CARDIOPULMONARY DISEASE.
== END 2020-08-03 21:45 | disposition home or self-care (01) ==
LOC: EMR 21:22
DX: J06.9 Acute upper respiratory infection, unspecified (principal); Z88.0 Allergy status to penicillin
CPT/HCPCS: 71045; Z7502; 99283

== ENCOUNTER 2020-12-31 17:34 | Emergency (ER) | payer MEDICAID ==
[~2020-12-31] VITALS: Ht 162.6 cm; Wt 70.8 kg
--- NOTE | 2020-12-31 17:38 | Emergency Room Report ---
History of Present Illness General Chief Complaint: To Be Triaged Present Illness HPI 20-year-old female with no signal past medical history here complaining of 2 days of urinary frequency and urgency. Denies dysuria, hematuria, fever and chills, low back pain, suprapubic pain, nausea vomiting. Reports that has history of recurrent UTI. Denies cough and congestion, no other URI symptoms. Denies vaginal discharge or pruritus. Denies being sexually active at this time. (Jaylyn Gallardo) Allergies: Coded Allergies: PENICILLINS (Verified Allergy, Unknown, 07/24/19) face swelling COVID-19 Screening Contact w/high risk pt: No Recent Travel to affected area: No Experienced COVID-19 symptoms?: Yes (Neris Young D.O.) Patient History Past Medical History: see triage record Past Surgical History: none Pertinent Family History: none Now: No Immunizations: UTD Reviewed Nursing Documentation: PMH: Agreed; PSxH: Agreed (Jaylyn Gallardo) Review of Systems All Other Systems: negative except mentioned in HPI (Jaylyn Gallardo) Physical Exam Sp02 EP Interpretation: reviewed, normal General Appearance: no apparent distress, alert, GCS 15, non-toxic Head: normocephalic, atraumatic Eyes: bilateral eye normal inspection, bilateral eye PERRL ENT: no angioedema Neck: supple Respiratory: no retraction Cardiovascular #1: no edema Gastrointestinal: non tender, soft, no mass, no organomegaly, no peritonitis, non-distended Genitourinary: no CVA tenderness Musculoskeletal: back normal Neurologic: alert, motor strength/tone normal, oriented x3, sensory intact, responsive, speech normal Psychiatric: judgement/insight normal, memory normal, mood/affect normal, no suicidal/homicidal ideation Skin: no rash Lymphatic: no adenopathy (Jaylyn Gallardo) Medical Decision Making PA Attestation All diagnosis and treatment plans were discussed and reviewed by my supervising physician Dr. Young (Jaylyn Gallardo) Diagnostic Impression: Primary Impression: UTI (urinary tract infection) ER Course 20-year-old female with no signal past medical history here complaining of 2 days of urinary frequency and urgency. Denies dysuria, hematuria, fever and chills, low back pain, suprapubic pain, nausea vomiting. Reports that has history of recurrent UTI. Denies cough and congestion, no other URI symptoms. Denies vaginal discharge or pruritus. Denies being sexually active at this time. Ddx considered but are not limited to: UTI, pyelonephritis, urinary incontinence, prolapsed bladder Vital signs: are WNL, pt. is afebrile H&PE are most consistent with: UTI ORDERS: UA, urine cx, urine , Macrobid ED INTERVENTIONS: None required at this time. DISCHARGE: At this time pt. is stable for d/c to home. Will provide printed patient care instructions, and any necessary prescriptions. Care plan and follow up instructions have been discussed with the patient prior to discharge. Advised patient to increase oral hydration, take medication as directed, if worsening symptom return to the emergency room (Jaylyn Gallardo) Condition: Stable Scripts Nitrofurantoin Monohyd/M-Cryst* (MACROBID 100 MG*) 100 Mg Capsule 100 MG ORAL EVERY 12 HOURS for 7 Days, #14 CAP Prov: Jaylyn Gallardo 12/31/20 Patient Instructions: Urinary Tract Infection, [id number] Additional Instructions: Instructions for patient/publications manager: Follow up with your physician in 1-2 days. Follow-up with your doctor sooner if your condition requires a more timely clinical reevaluation. Return to the emergency department immediately if you feel that your condition is worsening or if you have any new or concerning symptoms. Review your discharge instructions and take any prescriptions given as instructed. You had a urine culture done to evaluate for specific types of bacteria associated with your urinary infection. You were given an antibiotic that should treat most bacteria that usually occur with a urinary infection, but t here is always the possibility of antibiotic resistance. You will receive a telephone call if it is positive. If you do not receive a call, they are likely negative, but you should return to medical records to get your results to be sure, or have your primary doctor obtain them from our hospital, and especially if you are having persistent symptoms. If you are having persistent symptoms and are not able to get a hold of your culture results or your regular doctor you should return to the ER for a reevaluation. [facility] PROVIDES FREE OR LOW-COST HEALTH SERVICES TO PEOPLE WHO CAN SHOW PROOF THAT THEY LIVE IN [facility]. TO FIND MORE CLINICS PARTNERED WITH THE [facility] TO PROVIDE SERVICE, PLEASE CALL . Neris Young D.O. Dec 31, 2020 17:38 Jaylyn Gallardo Dec 31, 2020 18:28
[2020-12-31 18:05] VITALS: BP 110/71
[2020-12-31] MEDS ORDERED: NITROFURANTOIN100 M2 ORAL (18:29)
[2020-12-31 18:31] LABS: APPEARANCE,URINE CLEAR; BILIRUBIN, URINE NEGATIVE (NEGATIVE); COLOR,URINE PALE YELLOW; GLUCOSE, URINE (UA) NEGATIVE (NEGATIVE); KETONES,URINE NEGATIVE (NEGATIVE); NITRITE,URINE NEGATIVE (NEGATIVE); PH,URINE 5 (4.5-8.0); PROTEIN,URINE NEGATIVE (NEGATIVE); UROBILINOGEN,URINE NORMAL MG/DL (0.0-1.0)
[2020-12-31 18:48] LABS: LEUKOCYTE ESTERASE ,URINE TRACE (NEGATIVE)
== END 2020-12-31 18:58 | disposition home or self-care (01) ==
LOC: EMR 17:56
DX: N39.0 Urinary tract infection, site not specified (principal); Z88.0 Allergy status to penicillin
CPT/HCPCS: 81001; 81025; Z7502; 99283